=== PATIENT | female | born 1960 | race Caucasian/White ===

== ENCOUNTER → 2018-08-18 | Outpatient (CLI) | payer BC ==
[~2018-08-18] MED LIST: ESCITALOPRAM OX20 MG PO; GEMFIBROZIL 60600 M1 PO; HYDROCODONE-AP1 EAC6 PO; IBUPROFEN 200200 M1 PO; METFORMIN HCL500 MG PO; XANAX 0.5 MG0.5 MG PO; ZANAFLEX4 MG PO
--- NOTE | ~2018-08-18 | PAINCON ---
[address] [address] PAIN MANAGEMENT CONSULTATION Name: MAHESH LAUREN [facility] [id number] Admission: 08/18/18 Attend Phys: Lisa Barclay MD Discharge: Date of : 58 Report #: [id number] THIS REPORT FOR: //name// CC: William Barclay DATE OF SERVICE: 08/18/2018 CHIEF COMPLAINT: Arm, neck, and shoulder pain. HISTORY OF PRESENT ILLNESS: The patient is a 58-year-old female who is referred to the pain clinic for evaluation. The patient has been having pain and discomfort since 03/2018. She is experiencing pain in her neck with pain that is radiating down the posterior portion of her scapula, shoulder down into her arm with numbness and tingling into her right hand. She describes her pain as a constant irritation. She has tried a muscle relaxant, tizanidine. She feels that this helps relax her muscles somewhat, but continues to have the pain, which is constant and irritating. She rates it as a 2/10 today. She has used [place] to help control the pain. She has tried Naprosyn, does note that working at her desk can exacerbate the pain. She has tried the use of BenGay and notes sometimes use of a 4% solution of lidocaine patch has been helpful as well. ALLERGIES: No known drug allergies. MEDICATIONS: Alprazolam 0.5 mg, escitalopram 20 mg daily, gemfibrozil 600 mg, hydrocodone 5/325 one p.o. q.6 hours p.r.n., ibuprofen 200 mg q.6 hours p.r.n., metformin 500 mg. PAST MEDICAL HISTORY: 1. Generalized anxiety. 2. Sinusitis. 3. Depression. 4. Anxiety disorder. 5. Hyperlipidemia. 6. Diabetes type 2. 7. History of sciatic nerve pain. PAST SURGICAL HISTORY: Cholecystectomy, partial hysterectomy. 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 REVIEW OF SYSTEMS: Generally good health, wears glasses, diabetes, joint disease, joint stiffness, joint weakness, muscle cramps, back pain, numbness, tingling sensation or numbness down into the fingers. LABORATORY DATA: [place] [address] PAIN MANAGEMENT CONSULTATION Name: MAHESH LAUREN Room: [facility]#: [id number] Admission: 08/18/18 Attend Phys: Lisa Barclay MD Discharge: Date of : 58 Report #: [id number] 1. MRI of the cervical spine dated 07/22/2018, technically difficult and limited secondary to the patient's inability to lie properly on the coil without significant artifact present, which degraded the image quality. 2. Cerebrocranial junction unremarkable. Alignments/loss of the normal cervical lordosis could be position related to the spasms. No evidence of anterior subluxation. 3. No osseous evidence of fracture or bone marrow edema. Spinal cord limited secondary to artifact, soft tissues. No paraspinous mass or fluid collections. 4. C2/C3, no significant disk bulge protrusion or central spinal canal stenosis. 5. C3/C4, mild degenerative disk disease with left greater than right facet arthrosis. 6. Hyperintense ovoid lesion within the left neural foramen, may represent a perineural cyst. 7. C4/C5, mild degenerative disk and facet joint changes without significant spinal stenosis. Mild left neural foraminal narrowing. 8. C5/C6 broad-based posterior disk bulge, tiny central protrusion causes effacement of the ventral thecal sac and ventral cord flattening with mild central canal and proximal foraminal narrowing. 9. C6/C7 broad-based disk bulge or osteophyte complex with right posterior lateral asymmetry raising the suspicion for lateral disk protrusion causing encroachment upon the narrowing of the right neural foramen best seen on axial sequences. 10. C7/T1 unremarkable. PAIN CLINIC ASSESSMENT AND PQRS: 1. Osteoarthritis. The patient is not being treated for rheumatoid arthritis. She is not being treated for osteoarthritis. 2. Height 5 feet 2 inches, weight 128 pounds, BMI is 24. 3. Vital signs: Blood pressure 153/98, heart rate 92, respiratory rate 16, room air saturation is 100%, temperature 98.4. 4. Pain intensity 05/29. 5. Fall history: The patient fell and caused the injury in March when she was walking a neighbor's dog. 6. Blood thinner. The patient is not on a blood thinning medication. 7. Hypertension. The patient is not being treated for hypertension. 8. Opioid use greater than 6 weeks. The patient has received opioid medications from her primary. 9. Risk assessment tool, low for opioid use. 10. Functional assessment tool, . 11. Recreational drug use. The patient denies use of recreational drugs. 12. Tobacco: The patient smokes 1-1/2 pack of cigarettes per day. We discussed the benefits of smoking cessation. 13. Alcohol: The patient denies other than occasional alcohol use. PHYSICAL EXAMINATION: [facility] [address] [place] [address] PAIN MANAGEMENT CONSULTATION Name: MAHESH LAUREN [facility] [id number] Admission: 08/18/18 Attend Phys: Lisa Barclay MD Discharge: Date of : 58 Report #: [id number] GENERAL: The patient is a well-developed, well-nourished white female. Appears her stated age. She is alert and oriented x 3. Her affect is appropriate. Speech is fluent. HEENT: Normocephalic, atraumatic. Extraocular eye muscles intact. Sclerae nonicteric. Mucous membranes are moist. NECK: Without adenopathy or JVD. HEART: Regular rate. ABDOMEN: Nontender. Bowel sounds present. EXTREMITIES: Upper extremity muscle strength is 5/5 on the right, 5/5 on the left. The patient has 5-/5 on the right with numbness, tingling and discomfort down into her forearm with numbness and tingling involving her fingers. The patient without significant scoliosis, kyphosis or lordosis. Lower extremity muscle strength is judged to be 5/5 for the major muscle groups in the lower extremity. Forward bending was not problematic. Left and right rotation were not problematic. Lumbar extension caused some increased discomfort in her neck. IMPRESSION: 1. Cervical radiculopathy. 2. Generalized anxiety. 3. Sinusitis. 4. Depression. 5. Anxiety disorder. 6. Hyperlipidemia. 7. Diabetes type 2. 8. History of sciatic nerve pain. RECOMMENDATIONS: We discussed treatment options with the patient. Risks and benefits of opioid therapy was discussed. Possible complications of cervical epidural steroid injection were reviewed. They include but are not limited to infection, worsening pain, no improvement in pain, nerve trauma and bleeding. The patient feels that the tizanidine medication has been helpful. Review of this medication has been provided. She will consider the possibility of a cervical epidural steroid injection in the near future. She will return to the pain clinic where again additional evaluation and questions will be answered. We would like to thank you for letting us participate in her care. We hope she continues to improve. By: [id number]. Milan Barclay MD /REGINA
== END ==
LOC: M.PC 11:50
DX: M50.11 Cervical disc disorder with radiculopathy, high cervical region (principal); F41.1 Generalized anxiety disorder; J32.9 Chronic sinusitis, unspecified; F32.9 Major depressive disorder, single episode, unspecified; E78.5 Hyperlipidemia, unspecified; E11.9 Type 2 diabetes mellitus without complications; F17.210 Nicotine dependence, cigarettes, uncomplicated; Z79.84 Long term (current) use of oral hypoglycemic drugs; Z79.899 Other long term (current) drug therapy; Z90.49 Acquired absence of other specified parts of digestive tract; Z90.710 Acquired absence of both cervix and uterus; Z79.891 Long term (current) use of opiate analgesic

== ENCOUNTER → 2018-09-01 | Outpatient (CLI) | payer BC ==
--- NOTE | 2018-09-15 01:32 | PAINCON ---
[address] [address] PAIN MANAGEMENT CONSULTATION Name: MAHESH LAUREN [facility] [id number] Admission: 09/01/18 Attend Phys: Lisa Barclay MD Discharge: Date of : 58 Report #: [id number] THIS REPORT FOR: //name// CC: William Barclay DATE OF SERVICE: 09/01/2018 CHIEF COMPLAINT: Arm, neck and shoulder pain. HISTORY: The patient is a 58-year-old female who has been seen in the pain clinic because of cervical radicular pain. She has been experiencing pain in her neck, which has been radiating down into her right arm. She has had this discomfort since 03/2018. She has tried muscle relaxants, tizanidine as well as tincture of time. Her pain continues to be problematic. She has returned today with a desire to undergo a cervical epidural steroid injection to help decrease her pain. ALLERGIES: No known drug allergies. CURRENT MEDICATIONS: Alprazolam 0.5 mg, escitalopram 20 mg daily, gemfibrozil 600 mg, hydrocodone 5/325 one p.o. q.6 hours p.r.n., ibuprofen 200 mg q.6 hours p.r.n., metformin 500 mg. PAIN CLINIC ASSESSMENT AND PQRS: 1. Osteoarthritis. The patient is not being treated for rheumatoid arthritis. The patient is not being treated for osteoarthritis. 2. Height 5 feet 2 inches, weight 129 pounds, BMI is 23.6. 3. VITAL SIGNS: Blood pressure 137/85, heart rate 92, respiratory rate 16, room air saturation is 94%, temperature 98.1. 4. Pain intensity 05/29. 5. Fall history: The patient fell and caused the injury while walking a dog for a neighbor in March. 6. Blood thinner. The patient is not on a blood thinning medication. 7. Hypertension. The patient is not being treated for hypertension. 8. Opioids greater than 6 weeks. The patient has not been receiving opioid medication. 9. Risk assessment tool, low for opioid use. 10. Functional assessment tool . 11. Recreational drug use. The patient denies use of recreational drugs. 12. Tobacco: The patient smokes 1-1/2 pack of cigarettes per day. We discussed benefits of smoking cessation. 13. Alcohol: The patient denies other than occasional alcoholic use. PHYSICAL EXAMINATION: GENERAL: The patient is a well-developed, well-[place] [address] PAIN MANAGEMENT CONSULTATION Name: MAHESH LAUREN Room: [facility]#: [id number] Admission: 09/01/18 Attend Phys: Lisa Barclay MD Discharge: Date of : 58 Report #: [id number] her stated age. She is alert, oriented x 3. Her affect is appropriate. Speech is slow. HEENT: Normocephalic, atraumatic. Extraocular eye muscles intact. Sclerae nonicteric. Mucous membranes are moist. NECK: Without adenopathy or JVD. HEART: Regular rate. S1, S2. ABDOMEN: Nontender. Bowel sounds present. EXTREMITIES: Upper extremity muscle strength is judged to be 5-/5 on the right and 5-/5 on the left. The patient notes some numbness in the right hand with tingling and discomfort down into her forearm with numbness and the tingling involving her fingers. The patient is without significant scoliosis, kyphosis or lordosis. Lower extremity muscle strength judged to be 5/5 for the major muscle groups in the lower extremity. Forward bending was not problematic. Left and right lateral rotation not problematic. Lumbar extension caused some increased discomfort in her neck. IMPRESSION: 1. Cervical radiculopathy. 2. Generalized anxiety. 3. Sinusitis. 4. Depression. 5. Anxiety disorder. 6. Hyperlipidemia. 7. Type 2 diabetes. 8. History of sciatic nerve pain. RECOMMENDATIONS: We discussed treatment options with the patient. Risks and benefits of an epidural steroid injection were discussed. Possible complications of the procedure, which could include but are not often found or infection, increased muscle soreness, headache, bleeding, nerve damage with paralysis. The patient elects to proceed. PROCEDURE NOTE: The patient was taken to the procedure area. She was then assisted in getting on the examination table. Her back was sterilely prepped with a Betadine solution. A 0.25% bupivacaine was infiltrated at the C7-T1 interspace. This area had been sterilely prepped. Aspiration was negative. A total of 120 mg of triamcinolone was injected. The patient remained in the pain clinic for an appropriate amount of time. Pain decreased to 1 at the time of discharge. We would like to thank you for letting us participate in her care. We hope she continues to improve from the cervical radicular pain, which has been plaguing her. <ELECTRONICALLY SIGNED> By: Lisa Barclay MD 09/15/18 0132 [id number]. Milan Barclay MD /PMT
== END | disposition home or self-care (01) ==
LOC: M.PC 09:00
DX: M54.12 Radiculopathy, cervical region (principal); G89.29 Other chronic pain; E11.9 Type 2 diabetes mellitus without complications; E78.5 Hyperlipidemia, unspecified; F41.1 Generalized anxiety disorder; F32.9 Major depressive disorder, single episode, unspecified; J32.9 Chronic sinusitis, unspecified; Z79.899 Other long term (current) drug therapy; Z79.891 Long term (current) use of opiate analgesic; Z79.01 Long term (current) use of anticoagulants

== ENCOUNTER → 2018-10-13 | Outpatient (CLI) | payer OTHER ==
--- NOTE | 2018-10-19 14:27 | PAINCON ---
[address] [address] PAIN MANAGEMENT CONSULTATION Name: LEONIDASMAHESH TAMIKO Room: [facility] Inderjit#: [id number] Admission: 10/13/18 Attend Phys: Lisa Barclay MD Discharge: Date of : 58 Report #: [id number] THIS REPORT FOR: //name// CC: William Barclay DATE OF SERVICE: 10/13/2018 CHIEF COMPLAINT: "I was cleaning my garage and has noticed a return of pain down in my right arm. It is not as bad." HISTORY: The patient is a 58-year-old female who has been seen in the pain clinic because of cervical radiculopathy. She has undergone cervical epidural steroid injection with good result. She recently cleaned her garage. After all this activity she noted some increased pain and discomfort. She rates it as 2/10 at this point. It not as bad as it was initially. Continues to have some pain that radiates down into her right shoulder and down into her fingers. Also, has some pain in the rhomboid area near the scapula. She uses nonsteroidal anti-inflammatory medications over the counter. She has used ibuprofen. Finds that this medication is helpful. She has had no complication from the last injection. ALLERGIES: No known drug allergies. CURRENT MEDICATIONS: Alprazolam 0.5 mg, escitalopram 20 mg, gemfibrozil 600 mg, hydrocodone 5/325 p.r.n., ibuprofen 200 mg every 6 hours p.r.n., metformin 500 mg. PAIN CLINIC ASSESSMENT/PQRS: 1. The patient is not being treated for osteoarthritis. She has not been treated for rheumatoid arthritis. 2. Height 5 feet 2 inches, weight 130 pounds, BMI is 23.7. 3. VITAL SIGNS: Blood pressure 131/81, heart rate 87, respiratory rate 16, room air saturation 94%, temperature 98.1. 4. Pain intensity 05/29. 5. Fall history: The patient has not fallen in the last 3 months. 6. Blood thinner. The patient is not on a blood thinning medication. 7. Hypertension. The patient is not being treated for hypertension. 8. Opioids greater than 6 weeks. The patient is not receiving opioids on a regular basis. 9. Risk assessment tool for opioid use is low. 10. Functional assessment tool is . 11. Recreational drug use. The patient denies. 12. Tobacco: The patient smokes one-half pack of cigarettes per day, has smoked for about 30 years. 13. Alcohol: The patient denies use of alcoholic beverages. [place] [address] PAIN MANAGEMENT CONSULTATION Name: MAHESH LAUREN Room: [facility] ZOEY Jansen#: [id number] Admission: 10/13/18 Attend Phys: Lisa Barclya MD Discharge: Date of : 58 Report #: [id number] the patient that smoking cessation could be beneficial long-term. PHYSICAL EXAMINATION: GENERAL: The patient is a well-developed, well-nourished white female. Appears her stated age. She is alert and oriented x 3. Her is accompanying her. HEAD, EYES, EARS, NOSE, AND THROAT: Normocephalic, atraumatic. Extraocular eye muscles intact. Sclerae nonicteric. Mucous membranes are moist. NECK: Without adenopathy or JVD. Her right arm has some numbness radiating down into the fingers with numbness in her fingers. Has less pain underneath her armpit area as compared to the last visit. Has some pain in the mid neck with radiation down between her scapula and the back area near rhomboids. The patient without significant scoliosis, kyphosis or lordosis. Lower extremity muscle strength judged to be 5/5 for major muscle groups in the lower extremity. IMPRESSION: 1. Cervical radiculopathy. 2. Generalized anxiety. 3. Sinusitis. 4. Depression. 5. Anxiety disorder. 6. Hyperlipidemia. 7. Type 2 diabetes. 8. History of sciatic nerve pain. RECOMMENDATIONS: We discussed treatment options with the patient and her . Risks and benefits of a cervical epidural steroid injection were again reviewed. They include but are not limited to infection, worsening pain, no improvement in pain, nerve damage, bleeding, and the patient elects to proceed. PROCEDURE NOTE: The patient was taken to the procedure area. She was then assisted in getting on the examination table. Her neck was sterilely prepped with a Betadine solution. Fluoroscopy using anterior viewing was performed. At the C7/T1 interspace 0.25% bupivacaine was infiltrated using 25-gauge needle. A 17-gauge Tuohy with loss of resistance technique was then used at the C7-T1 interspace. Aspiration was negative. A total of 120 mg of triamcinolone was injected. The patient tolerated the procedure well. There were no complications. She remained in the Pain Clinic for an appropriate amount of time. We have discussed the benefits of a preemptive use of nonsteroidal anti-inflammatories before activity. This could decrease some swelling and inflammation in the future should she engage in activity. Also, provide the patient with a script for physical therapy, should she noted a recurrence of her pain where she could go and get exercises and instructions on things which would lessen the chance of her continued to have cervical radicular discomfort. [facility] [address] [place] [address] PAIN MANAGEMENT CONSULTATION Name: MAHESH LAUREN Room: [facility]#: [id number] Admission: 10/13/18 Attend Phys: Lisa Barclay MD Discharge: Date of : 58 Report #: [id number] We would like to thank you for letting us to participate in her care. We hope she continues to improve. <ELECTRONICALLY SIGNED> By: Lisa Barclay MD 10/19/18 1427 1010 1307N. Milan Barclay MD /[facility]
== END | disposition home or self-care (01) ==
LOC: M.PC 04:59
DX: M54.12 Radiculopathy, cervical region (principal); G89.29 Other chronic pain; E11.9 Type 2 diabetes mellitus without complications; F32.9 Major depressive disorder, single episode, unspecified; F17.210 Nicotine dependence, cigarettes, uncomplicated; F41.1 Generalized anxiety disorder; J32.9 Chronic sinusitis, unspecified; Z98.890 Other specified postprocedural states; Z79.899 Other long term (current) drug therapy; Z79.891 Long term (current) use of opiate analgesic